=== PATIENT | female | born 1990 | race Caucasian/White ===

== ENCOUNTER 2016-09-15 12:02 | Inpatient (IN) | payer BC ==
[~2016-09-15] VITALS: Ht 182.9 cm; Wt 129.5 kg
[~2016-09-15 12:02] MED LIST: D-ME118S6 PO; DICL50TA11 PO; FERR134T PO; HYDR-3498 PO; LEVO500T72 PO; NITR-58 PO; PRENAT PO
--- NOTE | 2016-09-15 12:20 | RADRPT ---
PROCEDURE: US OB. CLINICAL INDICATION: Size and dates , post dates TECHNIQUE: Multiple sonographic images of the pelvis and gravid uterus were obtained. The images were reviewed on a PACS workstation. COMPARISON: 07/31/2016 FINDINGS: There is a single viable intrauterine gestation. Cardiac activity is present with 128 beats per min [place]. There is a vertex presentation. The placenta is posterior. There is no evidence for an abruption or placenta previa. Measurements were made in order to determine age. The results are as follows: BPD =9.8 cm HC =34.3 cm AC =37.6 cm FL =7.6 cm Estimated gestational age of approximately 40 weeks and 0 days based on ultrasound measurements. Clinical age: 40 weeks and 1 day. The estimated date of delivery is 09/15/16, based on ultrasound measurements. The EFW = 4131 g, 85.3%, based on LMP age. RPTAT: AA IMPRESSION: Single viable intrauterine gestation of approximately 40 weeks and 0 days based on ultrasound measu rements. .Tom Castro MD, MD Date Time Electronically viewed and signed by .Tom Castro MD, on 09/15/2016 12:20 .S/
--- NOTE | 2016-09-15 12:24 | RADRPT ---
PROCEDURE: US OB biophysical profile. CLINICAL INDICATION: decreased movements, post dates TECHNIQUE: Multiple sonographic images of the pelvis were obtained. The images were reviewed on a PACS workstation. COMPARISON: Same day FINDINGS: There is a single viable intrauterine gestation. Cardiac activity is present with 130 beats per min gigi. There is a vertex presentation. The placenta is posterior. There is no evidence of placental abruption. There is a slightly decreased amount of amniotic fluid with an MARIA ELENA = 6.5 cm. Biophysical profile: movement 2/2 tone 2/2. breathing 2/2 MARIA ELENA 2/2 Total 04/07 RPTAT: AA . IMPRESSION: Normal biophysical profile. Mild oligohydramnios. . .Tom Castro MD, Date Time Electronically viewed and signed by .Tom Castro MD, MD on 09/15/2016 12:24 .S/
[2016-09-15] MEDS ORDERED: MISOPROSTOL 200 MCG TAB PR PRN (14:00)
[2016-09-15] MEDS ORDERED: METHYLERGONOVINE 0.2 MG INJ IM PRN (14:00)
[2016-09-15] MEDS ORDERED: OXYTOCIN 30 UNITS/LR 500 ML IV PRN (14:00)
[2016-09-15] MEDS ORDERED: CARBOPROST 250 MCG INJ IM PRN (14:00)
[2016-09-15] MEDS ORDERED: LIDOCAINE 1% (MPF) 30 ML INJ INJ PRN (14:00)
[2016-09-15] MEDS ORDERED: OXYTOCIN 30 UNITS/LR 500 ML IV SCH ×2 (14:00)
[2016-09-15] MEDS ORDERED: BUTORPHANOL 2 MG INJ IV PRN ×2 (14:00)
[2016-09-15] MEDS ORDERED: AMPICILLIN 2 GM/NS (PMX) 100 ML IV ONE (14:00)
[2016-09-15] MEDS ORDERED: LACTATED RINGER'S 1,000 ML IV PRN (14:00)
[2016-09-15] MEDS: LACTATED RINGER'S 1,000 ML IV SCH ×2 (15:01→22:36)
[2016-09-15 15:14] LABS: EOSINOPHILS # 0.1 10^3/ul (0.0-0.5); EOSINOPHILS % 1.3 % (0.0-7.0); HEMATOCRIT 33.6 % (37.0-47.0); HEMOGLOBIN 11.4 g/dl (12.0-16.0); LYMPHOCYTES # 1.6 10^3/ul (0.8-2.9); LYMPHOCYTES % 19.9 % (15.0-51.0); MEAN CORPUSCULAR HEMOGLOBIN 27.7 pg (29.0-33.0); MEAN CORPUSCULAR HGB CONC 33.9 g/dl (32.0-37.0); MEAN CORPUSCULAR VOLUME 81.8 fl (82.0-101.0); MEAN PLATELET VOLUME 9.9 fl (7.4-10.4); MONOCYTE # 0.5 10^3/ul (0.3-0.9); MONOCYTES % 6.3 % (0.0-11.0); NEUTROPHIL # 5.8 10^3/ul (1.6-7.5); NEUTROPHILS % 72.5 % (39.0-77.0); PLATELET COUNT 144 10^3/UL (140-440); RED BLOOD COUNT 4.11 10^6/ul (4.20-5.40); RED CELL DISTRIBUTION WIDTH 17.3 % (11.5-14.5)
[2016-09-15 15:19] LABS: INR 0.99; PROTIME 13.1 Sec (12.2-14.2)
[2016-09-15 15:23] LABS: CONDITION 1; LH ANALYZER COMMENTS 1
[2016-09-15] MEDS: MISOPROSTOL 25 MCG CAPSULE PO SCH ×2 (15:36→19:43)
[2016-09-15] MEDS: AMPICILLIN 1 GM/NS (PMX) 50 ML IV SCH ×2 (19:43→22:36)
--- NOTE | 2016-09-15 21:24 | HP ---
Date/Time of Note Date/Time of Note DATE: 09/15/16 TIME: 21:19 OB - History Hx of Present Chief Complaint: Induction of labor. Last Menstrual Period: Dec 09, 2015 Estimated Due Date: Sep 14, 2016 : 6 Para: 3 Spontaneous : 2 Therapeutic : 0 Care: Good Care Ultrasounds: Normal mid trimester US Obstetrical Complications: None Medical Complications: None Past Family/Social History * Past Medical, Surgical, Family and Obstetric Histories reviewed from chart. OB Admission Exam Physical Exam HEENT: WNL Lungs: Clear Abdomen: WNL Extremities: Normal Cervical Dilatation: None Effacement: 25% Station: -2 Membranes: Intact Heart Rate: 140's Accelerations: Accelerations Present Varibility: Moderate Contractions on Admission: >10 Minutes Apart Last 72 hours Lab Results CBC & BMP 09/15/16 14:40 OB Assessment/Plan Reason for admission: group B positive strep, induction of labor Plan: Induction Induction Method: per Misoprostol Protocol CRISTIANO SOSA MD Sep 15, 2016 21:24
[2016-09-16] MEDS: AMPICILLIN 1 GM/NS (PMX) 50 ML IV SCH ×3 (02:02→10:06)
[2016-09-16] MEDS: MISOPROSTOL 25 MCG CAPSULE PO SCH ×2 (02:18→06:35)
[2016-09-16] MEDS: LACTATED RINGER'S 1,000 ML IV SCH (06:21)
[2016-09-16] MEDS ORDERED: FENTAnyl 2MCG/ML-ROPIV 0.2% 100 ML ONE (07:39)
[2016-09-16] MEDS ORDERED: ONDANSETRON 4 MG INJ IV PRN (08:00)
[2016-09-16] MEDS ORDERED: NALOXONE (0.4 MG/ML) INJ IV PRN (08:00)
[2016-09-16] MEDS ORDERED: FENTAnyl 2MCG/ML-ROPIV 0.2% 100 ML BAG EPI SCH (08:00)
[2016-09-16] MEDS ORDERED: DIPHENHYDRAMINE 50 MG INJ IV PRN (08:00)
--- NOTE | 2016-09-16 12:13 | LDN ---
Date/Time of Note Date/Time of Note DATE: 09/16/16 TIME: 12:10 Delivery Summary over intact perineum. Placenta Delivered: Spontaneously Meconium: Light Perineum intact?: Yes Perineal laceration repair: Vaginal laceration repaired with 3-0 chromic. Anesthesia type: Epidural Estimated blood loss: 300 Sponge & Needle done & correct: Yes All needle counts correct: Yes Any foreign bodies felt in the: No Problems: Delivery Information Sex Infant Sex: female Apgars 1 Minute: 9 5 Minute: 9 Suctioning Nose & mouth suctioned at mihir: Yes Delee suction performed: No Umbilical Cord Umbilical cord with: 3 Vessels Cord presentations: no nuchal cord Cord Blood was obtained: Yes Mother & Baby Disposition Disposition Mom & Baby to Maternity; Good: Yes CRISTIANO SOSA MD Sep 16, 2016 12:13
--- NOTE | 2016-09-16 13:46 | DELSUM ---
Delivery Summary A-C Datetime Report Generated by CPN: 09/16/2016 13:46 DELIVERY PERSONNEL Clock Repairer: Karen Valenzuela MATERNAL INFORMATION Delivery Anesthesia: Epidural Medications in Delivery: LR 500 WITH 30 UNITS OF PITOCIN Estimated Blood Loss (ml): 300 Placenta Cultured: No Maternal Complications: None LABOR SUMMARY EDC: 09/14/2016 00:00 No. Babies in Womb: 1 Attempted: No Labor Anesthesia: Epidural LABOR INFORMATION Reason for Induction: Postterm Onset of Labor: 09/15/2016 12:00 Complete Dilatation: 09/16/2016 11:15 Cervical Ripening Agents: Cervidil (Annotations: 50MCG (DOSE #3)) Cervical Ripening Agents: Cytotec @ Cervical Ripening Agents: Cytotec @ 50 mcg Cervical Ripening Agents: Cytotec @ Oxytocin: N/A Group B Beta Strep: Not Done Antibiotics # of Doses: AMPICILLIN X 6 DOSES Antibiotics Time of Last Dose: 1006 Steroids Given: None Reason Steroids Not Administered: Not Applicable MEMBRANES Membranes Rupture Method: Spontaneous Rupture of Membranes: 09/16/2016 11:14 Length of Rupture (hr): 0.57 Amniotic Fluid Color: Light Meconium Amniotic Fluid Amount: Moderate Amniotic Fluid Odor: None STAGES OF LABOR Stage 1 hr: 23 Stage 1 min: 15 Stage 2 hr: 0 Stage 2 min: 33 Stage 3 hr: 0 Stage 3 min: 3 Total Time in Labor hr: 23 Total Time in Labor min: 51 VAGINAL DELIVERY Episiotomy: None Laceration Extension: N/A Laceration Type: Vaginal Laceration Repair: Yes Initial Vag Sponge Count: 20 Final Vag Sponge Count: 20 Initial Vag Sharps Count: 1 Final Vag Sharps Count: 2 Sponge Count Correct: Yes Sharps Count Correct: Yes BABY A INFORMATION Delivery Date/Time: 09/16/2016 11:48 Method of Delivery: Vaginal Born in Route : No : N/A Forceps: N/A Vacuum Extraction: N/A Shoulder Dystocia : N/A SHOULDER DYSTOCIA BABY A Infant Delivery Date/Time: 09/16/2016 11:48 PRESENTATION/POSITION BABY A Presentation: Cephalic Cephalic Presentation: Vertex Vertex Position: Left Occipital Anterior Breech Presentation: N/A PLACENTA INFORMATION BABY A Placenta Delivery Time : 09/16/2016 11:51 Placenta Method of Delivery: Spontaneous Placenta Status: Delivered SCORES BABY A Heart Rate 1 min: >100 bpm Resp Effort 1 min: Good Cry Reflex Irritability 1 min: Cough/Sneeze/Pulls Away Muscle Tone 1 min: Active Motion Color 1 min: Body [place], Extremit Blue Resuscitation Effort 1 min: Tactile Stimulation SCORE 1 MIN: 9 Heart Rate 5 min: >100 bpm Resp Effort 5 min: Good Cry Reflex Irritability 5 min: Cough/Sneeze/Pulls Away Muscle Tone 5 min: Active Motion Color 5 min: Body [place], Extremit Blue Resuscitation Effort 5 min: N/A SCORE 5 MIN: 9 INFORMATION BABY A Gestational Age at Delivery: 40.1 Gestational Status: Full Term- 39- 40.6 Weeks Outcome : Liveborn Infant Condition : Stable Sex: Female IDENTIFICATION/MEDS BABY A ID Band Number: [id number] ID Band Location: Right Leg; Left Arm Sensor Applied: Yes Sensor Number: [id number] Sensor Location : Cord Clamp Vitamin K Given : Aquamephyton 1 mg IM; Left Thigh Erythromycin Given: Given Both Eyes WEIGHT/LENGTH BABY A Infant Birthweight (gm): 4180 Weight (lb): 9 Weight (oz): 3 Length (in): 21.00 Infant Length (cm): 53.34 CORD INFORMATION BABY A No. Cord Vessels: 3 Nuchal Cord : N/A Cord Blood Taken: Yes Suction: Mouth ASSESSMENT BABY A Infant Complications: Meconium Physical Findings at Delivery: Within Normal Limits Infant Respirations: Appears Normal Research Agricultural Engineer/ALS Called : No Infant Care By: Stephanie Red RN;Rima Flores RT Transferred To: Remains with Mother
--- NOTE | 2016-09-16 13:48 | DELSUM ---
Delivery Summary A-C Datetime Report Generated by CPN: 09/16/2016 13:48 DELIVERY PERSONNEL Cashier Ticket Selling: Karen Valenzuela MATERNAL INFORMATION Delivery Anesthesia: Epidural Medications in Delivery: LR 500 WITH 30 UNITS OF PITOCIN Estimated Blood Loss (ml): 300 Placenta Cultured: No Maternal Complications: None LABOR SUMMARY EDC: 09/14/2016 00:00 No. Babies in Womb: 1 Attempted: No Labor Anesthesia: Epidural LABOR INFORMATION Reason for Induction: Postterm Onset of Labor: 09/15/2016 12:00 Complete Dilatation: 09/16/2016 11:15 Cervical Ripening Agents: Cervidil (Annotations: 50MCG (DOSE #3)) Cervical Ripening Agents: Cytotec @ Cervical Ripening Agents: Cytotec @ 50 mcg Cervical Ripening Agents: Cytotec @ Oxytocin: N/A Group B Beta Strep: Not Done Antibiotics # of Doses: AMPICILLIN X 6 DOSES Antibiotics Time of Last Dose: 1006 Steroids Given: None Reason Steroids Not Administered: Not Applicable MEMBRANES Membranes Rupture Method: Spontaneous Rupture of Membranes: 09/16/2016 11:14 Length of Rupture (hr): 0.57 Amniotic Fluid Color: Light Meconium Amniotic Fluid Amount: Moderate Amniotic Fluid Odor: None STAGES OF LABOR Stage 1 hr: 23 Stage 1 min: 15 Stage 2 hr: 0 Stage 2 min: 33 Stage 3 hr: 0 Stage 3 min: 3 Total Time in Labor hr: 23 Total Time in Labor min: 51 VAGINAL DELIVERY Episiotomy: None Laceration Extension: N/A Laceration Type: Vaginal Laceration Repair: Yes Initial Vag Sponge Count: 20 Final Vag Sponge Count: 20 Initial Vag Sharps Count: 1 Final Vag Sharps Count: 2 Sponge Count Correct: Yes Sharps Count Correct: Yes BABY A INFORMATION Delivery Date/Time: 09/16/2016 11:48 Method of Delivery: Vaginal Born in Route : No : N/A Forceps: N/A Vacuum Extraction: N/A Shoulder Dystocia : N/A SHOULDER DYSTOCIA BABY A Infant Delivery Date/Time: 09/16/2016 11:48 PRESENTATION/POSITION BABY A Presentation: Cephalic Cephalic Presentation: Vertex Vertex Position: Left Occipital Anterior Breech Presentation: N/A PLACENTA INFORMATION BABY A Placenta Delivery Time : 09/16/2016 11:51 Placenta Method of Delivery: Spontaneous Placenta Status: Delivered SCORES BABY A Heart Rate 1 min: >100 bpm Resp Effort 1 min: Good Cry Reflex Irritability 1 min: Cough/Sneeze/Pulls Away Muscle Tone 1 min: Active Motion Color 1 min: Body [place], Extremit Blue Resuscitation Effort 1 min: Tactile Stimulation SCORE 1 MIN: 9 Heart Rate 5 min: >100 bpm Resp Effort 5 min: Good Cry Reflex Irritability 5 min: Cough/Sneeze/Pulls Away Muscle Tone 5 min: Active Motion Color 5 min: Body [place], Extremit Blue Resuscitation Effort 5 min: N/A SCORE 5 MIN: 9 INFORMATION BABY A Gestational Age at Delivery: 40.1 Gestational Status: Full Term- 39- 40.6 Weeks Outcome : Liveborn Infant Condition : Stable Sex: Female IDENTIFICATION/MEDS BABY A ID Band Number: [id number] ID Band Location: Right Leg; Left Arm Sensor Applied: Yes Sensor Number: [id number] Sensor Location : Cord Clamp Vitamin K Given : Aquamephyton 1 mg IM; Left Thigh Erythromycin Given: Given Both Eyes WEIGHT/LENGTH BABY A Infant Birthweight (gm): 4180 Weight (lb): 9 Weight (oz): 3 Length (in): 21.00 Infant Length (cm): 53.34 CORD INFORMATION BABY A No. Cord Vessels: 3 Nuchal Cord : N/A Cord Blood Taken: Yes Suction: Mouth ASSESSMENT BABY A Infant Complications: Meconium Physical Findings at Delivery: Within Normal Limits Infant Respirations: Appears Normal Barrel Rifler Broach/ALS Called : No Infant Care By: Stephanie Red RN;Rima Flores RT Transferred To: Remains with Mother
--- NOTE | 2016-09-16 13:48 | OPRPT ---
Intraop Record Datetime Report Generated by CPN: 09/16/2016 13:48 Datetime: 07/31/2016 09:13 Food Allergies/Reactions: NONE Latex Allergies/Reactions: No Latex Allergies Datetime: 07/31/2016 09:02 Drug Allergies/Reactions: No Known Allergy (02/20/2014)
[2016-09-16 14:00] VITALS: BP 122/71; PULSE 94; RESP 18
[2016-09-16] MEDS ORDERED: LACTATED RINGER'S 1,000 ML IV* SCH (14:45)
[2016-09-16] MEDS ORDERED: DIBUCAINE 1% 30 GM OINT PR PRN (15:00)
[2016-09-16] MEDS ORDERED: CARBOPROST 250 MCG INJ IM PRN (15:00)
[2016-09-16] MEDS ORDERED: METHYLERGONOVINE 0.2 MG INJ IM PRN (15:00)
[2016-09-16] MEDS ORDERED: ACETAMINOPHEN 325 MG TAB PO PRN (15:00)
[2016-09-16] MEDS ORDERED: MISOPROSTOL 200 MCG TAB PR PRN (15:00)
[2016-09-16] MEDS ORDERED: BENZOCAINE 20% 56 ML SPRAY TOP PRN (15:00)
[2016-09-16] MEDS ORDERED: OXYTOCIN 30 UNITS/LR 500 ML IV PRN (15:00)
[2016-09-16] MEDS ORDERED: WITCH HAZEL/GLYCERIN PAD PR PRN (15:00)
[2016-09-16 16:30] VITALS: BP 149/83; PULSE 88; RESP 19
[2016-09-16] MEDS: IBUPROFEN 600 MG TAB PO SCH ×2 (17:16→23:56)
[2016-09-16] MEDS ORDERED: LANOLIN 7 GM TUBE TOP PRN (17:30)
[2016-09-16 20:15] VITALS: BP 113/69; PULSE 89; RESP 19
[2016-09-16] MEDS: ACETAMINOPHEN/CODEINE #3 TAB PO PRN (21:55)
[2016-09-16] MEDS: SENNA/DOCUSATE NA (8.6MG/50MG) TAB PO SCH (21:55)
[2016-09-17 05:00] VITALS: BP 109/68; PULSE 73; RESP 19
[2016-09-17] MEDS: IBUPROFEN 600 MG TAB PO SCH ×4 (05:44→23:35)
[2016-09-17 08:00] VITALS: BP 115/65; PULSE 84; RESP 17
[2016-09-17 08:27] LABS: BASOPHILS % 0.5 % (0.0-2.0); EOSINOPHILS # 0.1 10^3/ul (0.0-0.5); EOSINOPHILS % 0.9 % (0.0-7.0); HEMATOCRIT 32.6 % (37.0-47.0); LYMPHOCYTES # 1.6 10^3/ul (0.8-2.9); LYMPHOCYTES % 21.1 % (15.0-51.0); MEAN CORPUSCULAR HGB CONC 33.8 g/dl (32.0-37.0); MEAN CORPUSCULAR VOLUME 82.8 fl (82.0-101.0); MEAN PLATELET VOLUME 9.3 fl (7.4-10.4); MONOCYTE # 0.5 10^3/ul (0.3-0.9); MONOCYTES % 7.3 % (0.0-11.0); NEUTROPHIL # 5.3 10^3/ul (1.6-7.5); NEUTROPHILS % 70.2 % (39.0-77.0); PLATELET COUNT 118 10^3/UL (140-440); RED BLOOD COUNT 3.94 10^6/ul (4.20-5.40); RED CELL DISTRIBUTION WIDTH 17.4 % (11.5-14.5); UNCORRECTED WBC 7.5 10^3/ul (4.8-10.8); WHITE BLOOD COUNT 7.5 10^3/ul (4.8-10.8)
[2016-09-17] MEDS: SENNA/DOCUSATE NA (8.6MG/50MG) TAB PO SCH ×2 (08:58→21:06)
[2016-09-17] MEDS ORDERED: INFLUENZA VIRUS VACCINE 0.5 ML (DISPENSING) IM* ONE (09:00)
[2016-09-17 09:08] LABS: CONDITION 1; LH ANALYZER COMMENTS 1
[2016-09-17 16:00] VITALS: BP 116/73; PULSE 81; RESP 18
--- NOTE | 2016-09-17 19:14 | QN ---
Documentation Comment No complaint. Afebrile VSS Fundus FIRM Lochia scant A- PPD# 1 Stable P-Continue present care. CRISTIANO SOSA MD Sep 17, 2016 19:14
[2016-09-17 20:05] VITALS: BP 121/68; PULSE 85; RESP 18
[2016-09-18 04:15] VITALS: BP 117/65; PULSE 86; RESP 18
[2016-09-18] MEDS: IBUPROFEN 600 MG TAB PO SCH ×3 (05:36→17:16)
[2016-09-18 07:30] VITALS: BP 115/65; PULSE 87; RESP 19
[2016-09-18 08:08] LABS: BASOPHILS % 0.2 % (0.0-2.0); EOSINOPHILS # 0.1 10^3/ul (0.0-0.5); EOSINOPHILS % 1.4 % (0.0-7.0); HEMATOCRIT 32.4 % (37.0-47.0); HEMOGLOBIN 11.1 g/dl (12.0-16.0); LYMPHOCYTES % 16.3 % (15.0-51.0); MEAN CORPUSCULAR HEMOGLOBIN 28.1 pg (29.0-33.0); MEAN CORPUSCULAR HGB CONC 34.2 g/dl (32.0-37.0); MEAN CORPUSCULAR VOLUME 82.3 fl (82.0-101.0); MEAN PLATELET VOLUME 8.9 fl (7.4-10.4); MONOCYTE # 0.3 10^3/ul (0.3-0.9); MONOCYTES % 4.8 % (0.0-11.0); NEUTROPHIL # 4.7 10^3/ul (1.6-7.5); NEUTROPHILS % 77.3 % (39.0-77.0); PLATELET COUNT 122 10^3/UL (140-440); RED BLOOD COUNT 3.94 10^6/ul (4.20-5.40); RED CELL DISTRIBUTION WIDTH 16.7 % (11.5-14.5); UNCORRECTED WBC 6.1 10^3/ul (4.8-10.8); WHITE BLOOD COUNT 6.1 10^3/ul (4.8-10.8)
[2016-09-18 08:15] LABS: CONDITION 1; LH ANALYZER COMMENTS 1
[2016-09-18] MEDS ORDERED: DIPHTH/TET/ACEL PERTUSS (ADULT) 0.5 ML VIAL IM* ONE (09:00)
[2016-09-18] MEDS: SENNA/DOCUSATE NA (8.6MG/50MG) TAB PO SCH (09:54)
[2016-09-18] MEDS: ACETAMINOPHEN/CODEINE #3 TAB PO PRN (10:01)
[2016-09-18 16:00] VITALS: BP 123/80; PULSE 88; RESP 18
[2016-09-18 20:15] VITALS: BP 129/82; PULSE 89; RESP 18
--- NOTE | 2016-09-20 20:48 | DS ---
Date/Time of Note Date/Time of Note DATE: 09/20/16 TIME: 20:45 Obstetrical Discharge Record Final Diagnosis Final Diagnosis: Term delivered Vaginal Delivery Obstetrical Delivery: Spontaneous, Laceration, Repaired Condition on Discharge Physical Assessment Voiding: Yes Bowel Movement: Yes Breast: Soft, non-tender Fundus: Firm Calf Tenderness: No Patient Condition: Stable CRISTIANO SOSA MD Sep 20, 2016 20:48
== END 2016-09-18 20:30 | disposition home or self-care (01) | DRG 775 ==
LOC: L-D 12:02 → OBT 12:02 → L-D 13:38 → PP1 09-16 14:23
PROVIDERS: ADMIT Obstetrics & Gynecology; ATTEND Obstetrics & Gynecology
PROC: 10E0XZZ Delivery of Products of Conception, External Approach (ICD-10-PCS; principal; 2016-09-16)
PROC: 0UQGXZZ Repair Vagina, External Approach (ICD-10-PCS; 2016-09-16)
PROC: 3E0334Z Introduction of Serum, Toxoid and Vaccine into Peripheral Vein, Percutaneous Approach (ICD-10-PCS; 2016-09-18)
DX: O71.4 Obstetric high vaginal laceration alone (principal); E66.9 Obesity, unspecified; O99.214 Obesity complicating childbirth; Z68.38 Body mass index [BMI] 38.0-38.9, adult; Z23 Encounter for immunization; Z3A.40 40 weeks gestation of pregnancy; Z37.0 Single live birth
CPT/HCPCS: 62319; 76815; 76818; 85025; 85610; 85730; 86592; 86850; 86870; 86885; 86900; 86901; 90686; 90715; 99464; G0463; J0290; J3010; J7120

== ENCOUNTER 2016-09-19 20:23 | Emergency (ER) | payer BC ==
[~2016-09-19] VITALS: Ht 162.6 cm; Wt 126.5 kg
[~2016-09-19 20:23] MED LIST changes: -D-ME118S6 PO; -DICL50TA11 PO; -HYDR-3498 PO; -LEVO500T72 PO; -NITR-58 PO
[2016-09-19 20:24] VITALS: Ht 162.6 cm; Wt 126.5 kg
[2016-09-19] MEDS ORDERED: HYDROCODONE/APAP (10/325) TAB PO ONE (21:30)
--- NOTE | 2016-09-19 21:41 | ERD ---
ER Documentation Chief Complaint Date/Time DATE: 09/19/16 TIME: 21:36 Chief Complaint wound check- episiotomy wound HPI 26-year-old female who is A0, she had a vaginal delivery [address] Gallegos, comes to the ER with vaginal pain after a vaginal delivery on the , 3 days ago,, and concern for bleeding. This patient was in the hospital, she states that she has little appetite and noted some pain, and vaginal bleeding. She thought that that was normal after the delivery, she comes in with pain on the external fold on the right side, and she just wanted to get checked to make sure there was no dehiscence of the wound. She has not had any fever, chills. She does not have any heavy bleeding, there was scant bleeding that has been slowing down over the last 3 days. ROS All systems reviewed and are negative except as per history of present illness. Medications Home Meds Reported Medications Ferrous Sulfate (Iron) 134 Mg Tablet, 134 MG PO, TAB 07/31/16 Multivit/Min/Fol Ac/Iron/Pren* ( S*) 1 Tab Tab, 1 TAB PO DAILY, TAB 07/31/16 Discontinued Scripts Nitrofurantoin Monohyd Macrocr (Macrobid) 100 Mg Capsr, 100 MG PO BID for 7 Days , #14 CAP 0 Refills Prov:ABRAHAN GRIFFITHS PA-C 04/21/16 Diclofenac Sodium* (Diclofenac Sodium*) 50 Mg Tablet., 50 MG PO TID, #10 TAB Prov:SIDDHARTHA HALL DO 09/04/15 Dextromethorphan Hb-Promethazine Hcl (Promethazine DM Syrup) 180 Ml Syrup, 5 ML PO Q6 Y for COUGH, #180 ML Prov:SIDDHARTHA HALL DO 09/04/15 Levofloxacin* (Levaquin*) 500 Mg Tablet, 500 MG PO DAILY for 7 Days, TAB Prov:SIDDHARTHA HALL DO 09/04/15 Hydrocodone Bit-Acetaminophen* ([place]*) 5-325 Mg Tab, 1 TAB PO Q6 Y for PAIN, # 7 TAB Prov:SIDDHARTHA HALL DO 09/04/15 Allergies Allergies: Coded Allergies: No Known Allergy (Unverified , 02/20/14) PMhx/Soc Medical and Surgical Hx: pt denies Medical Hx, pt denies Surgical Hx History of Surgery: No Hx Neurological Disorder: No Hx Respiratory Disorders: No Hx Cardiac Disorders: No Hx Psychiatric Problems: No Hx Miscellaneous Medical Probl: No Hx Alcohol Use: No Hx Substance Use: No Hx Tobacco Use: No Smoking Status: Never smoker Physical Exam Vitals Vital Signs Date Time Temp Pulse Resp B/P Pulse Ox O2 Delivery O2 Flow Rate FiO2 09/19/16 20:24 98.8 99 20 151/97 100 Physical Exam General: Well-developed, well-nourished. The patient appears in no acute distress. HEENT: Head is normocephalic, atraumatic. No scleral icterus. Neck: Supple. Nontender. Lungs: Clear to auscultation. Normal air movement. Heart: Regular rate and rhythm. S1 and S2 are normal. No murmurs, gallops, or rubs. Abdomen: Soft, nontender, nondistended. Bowel sounds are normoactive. : There is tenderness on the external old on the right side, there is no mass , sutures are intact, no dehiscence, there is scant vaginal bleeding in the vault. Extremities: No clubbing or cyanosis. Normal pulses. Moving extremities x 4. No weakness. Neurologic: Alert and oriented 3. No focal deficits. Skin: Normal turgor. No rash or lesions. Results 24 hrs Current Medications Medications (Trade) Dose Ordered Sig/Tracy Route PRN Reason Start Time Stop Time Status Last Admin Dose Admin Acetaminophen/ Hydrocodone Bitart ([place] (10/325)) 1 tab ONCE ONCE PO 09/19/16 21:30 09/19/16 21:31 DC 09/19/16 21:19 Procedures/MDM ED course: I spoke with the on-call laborist, Dr Musa, who examined the patient, and she agrees that there is no evidence of infection, dehiscence. She states that the bleeding is normal. We phoned her surgeon, at [id number], Dr Gallegos. MDM: 26-year-old female comes in after vaginal delivery 3 days ago, and there is some bleeding, and the episiotomy site looks normal without any evidence of infection or dehiscence. She is to recheck with her OB early next week. She was seen by the OB here, we were not able to speak with Dr. Nya shot, however we did phone him and leave a message with the office. Her blood pressure is elevated, she states that she is in a lot of pain at this time, we ordered her [place], however the patient states that she was in a lot of pain are likely leave and she eloped from the emergency department without her AVS. Departure Diagnosis: Primary Impression: Encounter for wound re-check Condition: Good Patient Instructions: Post Op Wound Check, Pain Additional Instructions: Patient was advised to follow-up with their OB (Dr Gallegos) in 3-4 days for a recheck examination. If they were to develop any worsening symptoms sooner, including heavy vaginal bleeding or pelvic pain, they are to return to the ER for further evaluation. MELVIN LUGO PA-C Sep 19, 2016 21:41
== END 2016-09-19 21:26 | disposition left against medical advice (07) ==
LOC: FTE 20:23 → E/R 21:26
DX: O72.2 Delayed and secondary postpartum hemorrhage (principal)
CPT/HCPCS: Z7502; Z7610; 99283